=== PATIENT | female | born 1945 | race Caucasian/White ===

== ENCOUNTER 2016-08-20 14:06 | Emergency (ER) | payer MEDICARE, OTHER ==
[2016-08-20] MEDS ORDERED: ZOCOR20 M1 PO (14:16)
[2016-08-20] MEDS ORDERED: AMITRIPTYLINE100 M1 PO (14:17)
== END 2016-08-20 16:13 ==
LOC: EDMED 14:06
DX: G43.909 Migraine, unspecified, not intractable, without status migrainosus (principal)
CPT/HCPCS: J0780; J1200; J7030